=== PATIENT | female | born 1990 | race Caucasian/White ===

== ENCOUNTER 2025-03-09 21:28 | Inpatient (IN) ==
[2025-03-09] MEDS ORDERED: CALCIUM CARBONATE 500 MG CHEWABLE TAB PO PRN (21:38)
[2025-03-09] MEDS ORDERED: ACETAMINOPHEN 500 MG TAB PO PRN (21:38)
[2025-03-09] MEDS ORDERED: OXYTOCIN 30 UNITS/NSS 30 UNITS/500 ML BAG IV PRN (21:38)
--- NOTE | 2025-03-09 21:52 | History & Physical Report ---
Date of Service March 09, 2025 Assessment & Plan (1) Active labor at term: Plan: 34-year-old G1, P0 at 40 weeks and 5 5 days of gestation presenting today with contractions and cervical change, Vital signs stable afebrile, heart rate reassuring, GBS negative, Plan to admit, monitor, labs, epidural when patient desires, anticipate , All questions were answered. (2) Uterine contractions at greater than 20 weeks of gestation: History of Present Illness Chief Complaint: Contractions Primary Care Provider: Radha Astudillo patient is a 34-year-old G1, P0 at 40 weeks and 5 days of gestation who has been feeling contractions all day, they got more regular and painful after 8 PM. She has been feeling them every 45 minutes. She denies no leakage of fluid or vaginal bleeding. She reports good movements. Her has been uncomplicated. C.lomid , GBS negative, Denies medical problems Allergies Allergy/AdvReac Type Severity Reaction Status Date / Time No Known Allergies Allergy Verified 10/20/23 08:55 Home Medications Medication Instructions Recorded Confirmed Type vitamin-ferrous sulfate 1 tab PO DAILY 03/09/25 03/09/25 History 27 mg iron-folic acid 0.8 mg tablet Patient History Social History Smoking Status: Never smoker Preferred Language: Citizen Of [place] Feels Safe at Home: Yes [employer] History No history of chlamydia, gonorrhea, herpes. Review of Systems as per Subjective / HPI Physical Exam Constitutional: WD/WN, vitals as above well developed, well nourished and + acute distress ( With contractions) Gastrointestinal (Abdomen): normal bowel sounds, soft, nontender, no hepatosplenomegaly ( gravid) Genitourinary: normal external appearance OB Exam Abdomen: + vertex Manual OB Exam: + cervical dilation 5 cm, + cervical effacement 90% and + station 0 Results & Data Vital Signs (Past 12 Hours) Vital Signs Pulse BP 03/09/25 21:34 66 127/83
[2025-03-09 22:15] LABS: Hematocrit (blood only) 35.8 % (37.0-47.0); Hemoglobin 12.8 g/dl (12.0-16.0); Mean Corpuscular Hemoglobin 31.4 pg (25.0-34.0); Mean Corpuscular Volume 87.7 fL (80.0-100.0); Platelet Count 226 K/uL (130-400); RDW Standard Deviation 38.4 fL (36.4-46.3); Red Blood Count 4.08 M/uL (4.20-5.40); White Blood Count 11.24 K/ul (4.8-10.8)
[2025-03-10] MEDS: LACTATED RINGER'S 1,000 ML IV PRN (00:16)
[2025-03-10] MEDS: OXYTOCIN 30 UNITS/NSS 30 UNITS/500 ML BAG IV PRN (01:42)
[2025-03-10] MEDS: METHYLERGONOVINE MALEATE 0.2 MG/ML AMP IM ONE (02:06)
[2025-03-10] MEDS ORDERED: ACETAMINOPHEN 325 MG TAB PO PRN (02:23)
[2025-03-10] MEDS ORDERED: IRON SUCROSE 200 MG in SODIUM CHLORIDE 0.9% 100 ML IV ONE (02:23)
[2025-03-10] MEDS ORDERED: HYDROCORTISONE ACETATE 25 MG SUPP PR PRN (02:23)
--- NOTE | 2025-03-10 02:34 | Delivery Summary ---
Vaginal Delivery Summary Date of Service March 10, 2025 Vaginal Delivery Summary Patient had SROM'ed at 00:05. has not received epidural. She was found to be fully dilated and desired to push. She pushed for about 1.5 hours and delivered the head and then shoulders with minimal traction. The baby was handed off to the mother. The cord was clampedx2 and cut at 1 minute. The placenta was delivered spontaneously as intact and complete. The uterus was explored and found to be empty. Cleared from cloths. The vagina and perineum were checked and found to have 2nd degree perineal and 1st degree right vaginal laceration. Rectal exam was done and noted good sphincter tone. The gloves were changes. 1% Lidocaine was used for LA. Perineal body muscles were held with Allis clamps and repaired with 2/0 Vicryl. The vaginal mucosa was repaired with 2/0 vicryl and skin on subcuticular fas hion. The vaginal laceration at 9 o'clock position was repaired with 2/0 Vicryl with figure of 8 stitches x2. It was covered with Percloth powder and good hemostasis was achieved. QBL was 576 ml. The fundus was firm. The baby was a viable male infant, Apgars 8/9, the weight is pending. The mother and the baby tolerated the procedure well. No complications happened and I was present during whole procedure.
[2025-03-10] MEDS ORDERED: OXYTOCIN 20 UNITS/LR 1,002 ML IV SCH (03:00)
[2025-03-10] MEDS: IBUPROFEN 600 MG TAB PO PRN (03:50)
[2025-03-10] MEDS: BENZOCAINE 20% SPRY 85 APPLN/85 GM CAN EXT PRN (03:51)
[2025-03-10] MEDS: LIDOCAINE 1% LOCAL 20 ML VIAL INFIL PRN (04:37)
[2025-03-10 07:10] LABS: Hematocrit (blood only) 30.6 % (37.0-47.0); Hemoglobin 11.3 g/dl (12.0-16.0); Immature Granulocytes # (auto) 0.11 K/uL (0.01-0.20); Immature Granulocytes % (auto) 0.6 %; Mean Corpuscular Hemoglobin 32.8 pg (25.0-34.0); Mean Corpuscular Volume 89.0 fL (80.0-100.0); Platelet Count 199 K/uL (130-400); RDW Standard Deviation 38.6 fL (36.4-46.3); Red Blood Count 3.44 M/uL (4.20-5.40); White Blood Count 19.04 K/ul (4.8-10.8)
[2025-03-10] MEDS: FERROUS SULFATE 325 MG TAB PO SCH (08:25)
[2025-03-10] MEDS: DOCUSATE SODIUM 100 MG CAP PO SCH (08:25)
[2025-03-10] MEDS: METHYLERGONOVINE MALEATE 0.2 MG TAB PO SCH (08:27)
[2025-03-10] MEDS ORDERED: COUGH DROP (SUGAR FREE) LOZ 24 LOZ/1 BOX BUCCAL PRN (09:03)
[2025-03-10] MEDS ORDERED: AMOXICILLIN/CLAVULANATE 875 MG TAB PO SCH (09:30)
[2025-03-10] MEDS: MEASLES, MUMPS & RUBELLA VIRUS VACCINE (MMR) 0.5ML VIAL SQ ONE (11:30)
[2025-03-10] MEDS: DIPHTHER/TETAN/PERTUS Vaccine (Tdap, Adol/Adult) 0.5mL IM ONE (11:33)
[2025-03-10] MEDS: PRENATAL VITAMIN 1 TAB PO SCH (12:19)
[2025-03-11] MEDS ORDERED: METHYLERGONOVINE MALEATE 0.2 MG/ML AMP ONE (01:17)
[2025-03-11 04:07] VITALS: O2SAT 98
[2025-03-11 07:25] LABS: Hematocrit (blood only) 26.2 % (37.0-47.0); Hemoglobin 9.3 g/dl (12.0-16.0); Mean Corpuscular Hemoglobin 32.5 pg (25.0-34.0); Mean Corpuscular Volume 91.6 fL (80.0-100.0); Platelet Count 163 K/uL (130-400); RDW Standard Deviation 41.2 fL (36.4-46.3); Red Blood Count 2.86 M/uL (4.20-5.40); White Blood Count 10.88 K/ul (4.8-10.8)
[2025-03-11 08:22] VITALS: BP 104/65; PULSE 70; RESP 19; TEMP 97.9
--- NOTE | 2025-03-11 09:24 | Obstetrical Progress Note ---
Date of Service March 11, 2025 Subjective Ambulation: ambulating normally Voiding: no voiding problems Passing Gas:: Yes Diet Tolerance:: regular diet Lochia:: Small Feeding Type:: breast feeding Current Pain Level(1-10): 0 doing well. plans for d/c today Physical Exam Constitutional WD/WN, vitals as above Gastrointestinal (Abdomen) Inspection/Auscultation: abdomen normal to inspection abdomen soft and non-tender. fundus firm below U Musculoskeletal Extremities: extremities normal to inspection Skin no rashes, warm and dry Neurologic patellar DTR's 2+ bilat, sensation intact Psychiatric A+Ox3, euthymic affect Results & Data Vital Signs (Past 12 Hours) Vital Signs Temp Pulse Resp BP Pulse Ox O2 Del Method 03/11/25 08:15 36.6 C 70 19 104/65 98 Room Air 03/11/25 02:50 36.7 C 65 18 107/67 98 Room Air Laboratory Results 03/09/25 03/10/25 03/11/25 21:58 06:43 07:05 WBC 11.24 H 19.04 H 10.88 H RBC 4.08 L 3.44 L 2.86 L Hgb 12.8 11.3 L 9.3 L Hct 35.8 L 30.6 L 26.2 L MCV 87.7 89.0 91.6 MCH 31.4 32.8 32.5 MCHC 35.8 36.9 H 35.5 RDW Std Deviation 38.4 38.6 41.2 RDW Coeff of Vadim 12.1 12.1 12.4 Plt Count 226 199 163 MPV 10.8 11.2 10.8 Immature Gran % (Auto) 0.6 Neut % (Auto) 84.1 Lymph % (Auto) 8.1 [place] % (Auto) 7.0 Eos % (Auto) 0.0 Baso % (Auto) 0.2 Neut # (Auto) 16.03 H Lymph # (Auto) 1.54 [place] # (Auto) 1.33 H Eos # (Auto) 0.00 Baso # (Auto) 0.03 Immature Gran # (Auto) 0.11 Treponema pallidum Ab Negative Blood Type A Negative Antibody Screen NEGATIVE
== END 2025-03-11 13:35 | disposition home or self-care (01) | DRG 807 ==
LOC: OPB 21:28 → 4S1 21:29 → 4E2 03-10 06:25